=== PATIENT | male | born 1975 | race Caucasian/White ===

== ENCOUNTER 2023-06-12 14:05 | Outpatient (REF) | payer MEDICAID, OTHER, SELFPAY ==
[2023-06-12 16:33] LABS: MANUAL DIFF FLAG NO
[2023-06-12 16:38] LABS: Basophils Percent Auto 0.9 % (0-2); Eosinophils Absolute Auto 0.1 X10*3/uL (0.0-0.4); Eosinophils Percent Auto 1.3 % (0-4); Hematocrit 41.4 % (42.0-52.0); Hemoglobin 14.1 g/dl (14.0-18.0); Imm Gran Abs Auto 0.02 X10*3/uL (0.00-0.03); Imm Gran Pct Auto 0.4 % (0.0-0.4); Lymphocytes Absolute Auto 1.6 X10*3/uL (1.2-4.9); Lymphocytes Percent Auto 34.6 % (20-40); Mean Corpuscular HGB Conc 34.1 g/dl (31.0-36.0); Mean Corpuscular Hemoglobin 30.5 pg (27.0-33.0); Mean Corpuscular Volume 89.6 fL (80.0-98.0); Mean Platelet Volume 11.7 fL (9.4-12.4); Monocytes Absolute Auto 0.3 X10*3/uL (0.1-1.2); Monocytes Percent Auto 6.6 % (2-11); Neutrophils Absolute Auto 2.6 x10*3/uL (2.0-8.3); Neutrophils Percent Auto 56.2 % (45-73); Platelet Count 164 X10*3/uL (160-400); Red Blood Count 4.62 X10*6/uL (4.60-5.80); Red Cell Distribution Width 12.5 % (11.0-16.0); White Blood Count 4.7 X10*3/uL (4.8-10.8)
[2023-06-12 16:50] LABS: Estimated Average Glucose 103 mg/dL; Hemoglobin A1c % 5.2 %
[2023-06-12 16:54] LABS: Alanine Aminotransferase 29 U/L (0-40); Albumin Level 4.6 g/dL (3.5-5.0); Alkaline Phosphatase 69 U/L (39-117); Anion Gap 16 (12-20); Aspartate Amino Transferase 21 U/L (5-37); Bilirubin Total 0.3 mg/dL (0.0-1.0); Blood Urea Nitrogen 17 mg/dL (9-16); Calcium 9.8 mg/dL (8.4-10.2); Carbon Dioxide 24 mmol/L (22-29); Chloride 105 mmol/L (96-108); Cholesterol 208 mg/dL; Estimated Glomerular Filt Rate > 60; Glucose Random 93 mg/dL (60-115); HDL Cholesterol 44 mg/dL; LDL Cholesterol Calculated 115 mg/dl; Sodium 141 mmol/L (135-145); Total Protein 7.7 g/dL (6.5-8.0); Triglycerides 249 mg/dL
[2023-06-12 17:12] LABS: TSH reflex Free T4 2.28 uIU/mL (0.32-4.0); Vitamin D 25-OH Total 26.2 ng/mL (>30)
[2023-06-13 04:15] LABS: Syphilis Screen Nonreactive (Nonreactive)
[2023-06-13 04:35] LABS: ~HepC Num1 0.06 S/CO (0.00-0.79); ~Hepatitis C Antibody Nonreactive (Nonreactive)
[2023-06-13 04:37] LABS: HIV AB/AG Nonreactive (Nonreactive); HIV Num 1 0.05 S/CO (0.00-0.99)
== END 2023-06-12 14:06 | disposition home or self-care (01) ==
LOC: HO.HHCL 14:05
PROVIDERS: Visit Provider Emergency Medicine
DX: Z11.4 Encounter for screening for human immunodeficiency virus [HIV] (principal); F11.20 Opioid dependence, uncomplicated
CPT/HCPCS: 36415; 80053; 80061; 82306; 83036; 84443; 85025; 86780; 86803; 87389

== ENCOUNTER 2024-02-05 11:29 | Outpatient (REF) | payer MEDICAID, OTHER, SELFPAY ==
[2024-02-05 13:36] LABS: Hematocrit 44.8 % (42.0-52.0); Hemoglobin 15.5 g/dl (14.0-18.0); Mean Corpuscular HGB Conc 34.6 g/dl (31.0-36.0); Mean Corpuscular Hemoglobin 30.5 pg (27.0-33.0); Mean Corpuscular Volume 88.2 fL (80.0-98.0); Mean Platelet Volume 12.3 fL (9.4-12.4); Platelet Count 177 X10*3/uL (160-400); Red Blood Count 5.08 X10*6/uL (4.60-5.80); Red Cell Distribution Width 13.1 % (11.0-16.0); White Blood Count 5.1 X10*3/uL (4.8-10.8)
[2024-02-05 13:44] LABS: Estimated Average Glucose 111 mg/dL; Hemoglobin A1c % 5.5 % (<6.0)
[2024-02-05 14:10] LABS: Creatinine Urine 231.98 mg/dL; Microalbum/Creatinine Ratio Ur 7.7 ug/mg cr (<30)
[2024-02-05 15:11] LABS: CT PCR NOT DETECTED (Not Detect.); NG PCR NOT DETECTED (Not Detect.)
[2024-02-06 04:10] LABS: HBS Num1 78.04 mIU/mL (0-7.99); HBsAGNum1 0.44 S/CO (0.00-0.99); HIV AB/AG Nonreactive (Nonreactive); HIV Num 1 0.07 S/CO (0.00-0.99); Hepatitis B Surface Antigen Negative (Negative); ~HepC Num1 0.07 S/CO (0.00-0.79); ~Hepatitis B Surface Antibody REACTIVE (Nonreactive); ~Hepatitis C Antibody Nonreactive (Nonreactive)
[2024-02-07 09:44] LABS: RPR Rapid Plasma Reagin NON-REACTIVE (NON-REACTIVE)
== END 2024-02-05 11:30 | disposition home or self-care (01) ==
LOC: HO.HHCL 11:29
PROVIDERS: Visit Provider Family Medicine
DX: Z00.00 Encounter for general adult medical examination without abnormal findings (principal); Z11.4 Encounter for screening for human immunodeficiency virus [HIV]; Z20.2 Contact with and (suspected) exposure to infections with a predominantly sexual mode of transmission
CPT/HCPCS: 0353U; 36415; 82043; 82570; 83036; 85027; 86592; 86706; 86803; 87340; 87389

== ENCOUNTER 2024-09-04 12:25 | Outpatient (REF) | payer MEDICAID, OTHER, SELFPAY ==
[2024-09-04 14:10] LABS: Hematocrit 41.6 % (42.0-52.0); Hemoglobin 14.5 g/dl (14.0-18.0); Mean Corpuscular HGB Conc 34.9 g/dl (31.0-36.0); Mean Corpuscular Hemoglobin 31.3 pg (27.0-33.0); Mean Corpuscular Volume 89.7 fL (80.0-98.0); Mean Platelet Volume 11.1 fL (9.4-12.4); Platelet Count 166 X10*3/uL (160-400); Red Blood Count 4.64 X10*6/uL (4.60-5.80); Red Cell Distribution Width 12.7 % (11.0-16.0); White Blood Count 4.1 X10*3/uL (4.8-10.8)
[2024-09-04 14:20] LABS: Estimated Average Glucose 111 mg/dL; Hemoglobin A1C 125.8664 umol/L; Hemoglobin A1c % 5.5 % (<6.0); Total Hemoglobin (HGBA1C) 3441.4347 umol/L
[2024-09-04 14:25] LABS: Alanine Aminotransferase 35 U/L (0-40); Albumin Level 4.5 g/dL (3.5-5.0); Alkaline Phosphatase 68 U/L (39-117); Anion Gap 11 (12-20); Aspartate Amino Transferase 35 U/L (5-37); Bilirubin Direct 0.1 mg/dL (0.0-0.5); Bilirubin Total 0.5 mg/dL (0.0-1.0); Blood Urea Nitrogen 14 mg/dL (9-16); Calcium 9.7 mg/dL (8.4-10.2); Carbon Dioxide 29 mmol/L (22-29); Chloride 105 mmol/L (96-108); Cholesterol 190 mg/dL (<200); Estimated Glomerular Filt Rate > 60; Glucose Random 84 mg/dL (60-115); HDL Cholesterol 42 mg/dL (>40); LDL Cholesterol Calculated 130 mg/dL (<100); Potassium 4.7 mmol/L (3.3-5.1); Sodium 140 mmol/L (135-145); Total Protein 7.5 g/dL (6.5-8.0); Triglycerides 91 mg/dL (<150)
[2024-09-04 14:30] LABS: Thyroid Stimulating Hormone 1.81 uIU/mL (0.32-4.0); Vitamin D 25-OH Total 47.6 ng/mL (>30)
[2024-09-04 15:11] LABS: CT PCR NOT DETECTED (Not Detect.); NG PCR NOT DETECTED (Not Detect.)
[2024-09-05 08:49] LABS: HIV AB/AG Nonreactive (Nonreactive); HIV Num 1 0.05 S/CO (0.00-0.99); ~HepC Num1 0.06 S/CO (0.00-0.79); ~Hepatitis C Antibody Nonreactive (Nonreactive)
[2024-09-05 20:13] LABS: RPR Rapid Plasma Reagin NON-REACTIVE (NON-REACTIVE)
[2024-09-07 03:24] LABS: TS Negative Control Passed; TS Panel A 0; TS Panel B 1; TS Positive Control Passed; TSpotTB Negative (Negative)
== END 2024-09-04 12:26 | disposition home or self-care (01) ==
LOC: HO.HHCL 12:25
PROVIDERS: Visit Provider Family Medicine
DX: Z00.00 Encounter for general adult medical examination without abnormal findings (principal); F11.20 Opioid dependence, uncomplicated; E78.5 Hyperlipidemia, unspecified
CPT/HCPCS: 36415; 80048; 80061; 80076; 82306; 83036; 84439; 84443; 85027; 86481; 86592; 86803; 87389; 87491; 87591

== ENCOUNTER → 2024-12-24 15:53 | Outpatient (BNV) | payer SELFPAY | PROVIDERS: Emergency Provider Emergency Medicine; Visit Provider Internal Medicine Cardiovascular Disease | DX: R07.9 Chest pain, unspecified (principal) | CPT/HCPCS: 93010 ==

== ENCOUNTER → 2024-12-24 15:57 | Outpatient (BNV) | payer MEDICAID, SELFPAY | PROVIDERS: Emergency Provider Emergency Medicine; Visit Provider Radiology Diagnostic Radiology | DX: S19.9XXA Unspecified injury of neck, initial encounter (principal); S06.310A Contusion and laceration of right cerebrum without loss of consciousness, initial encounter; R07.9 Chest pain, unspecified | CPT/HCPCS: 71045; 72125 ==

== ENCOUNTER 2025-05-05 11:24 | Outpatient (REF) | payer MEDICAID, OTHER, SELFPAY ==
--- OUTSIDE RECORDS SUMMARY | 2025-05-05 10:00 | XMS_ITS | Encounter Summary ---
Author Organization [employer] Address [address] [place] [address] [address] [place] [address] Care Team Providers Care Linoleum Installer Name Role Phone Monica Galloway DO Primary Care Provider [phone] Reason for Visit * Reason Comments Follow-up Encounter Details Date Type Department Care Team (Latest Contact Info) Description 05/05/2025 10:00 AM EDT Office Visit [facility] MEDICINE [address], [place] [id number] Monica Galloway DO [address] [place], [place] [id number] Opioid dependence, uncomplicated (CMS/HCC) (Primary Dx); Dyslipidemia; Fatigue, unspecified type; Dizziness; Sleep-disordered breathing; Healthcare maintenance Social History Tobacco Use Types Packs/Day Years Used Date Smoking Tobacco: Never Smokeless Tobacco: Never Tobacco Cessation:Counseling Given: Not Answered Alcohol Use Standard Drinks/Week Comments Never 0 (1 standard drink = 0.6 oz pur e alcohol) Depression Answer Date Recorded Patient Health Questionnaire-9 Score 0 05/05/2025 Patient Health Questionnaire-9 Score 0 05/05/2025 Last PHQ-9: Questionnaire Data Not on file 0 05/05/2025 Housing Stability Answer Date Recorded What is your housing situation today? I have eb long 05/05/[address] you li ve. Do you have problems with any of the following? None of the above 05/05/2025 Food Insecurity Answer Date Recorded Within the past 12 months, y ou worried that your food would run out before you got money to buy more: Never True 05/05/2025 Within the past 12 months,th e food you bought just didn't last and you didn't have enough money to get more: Never True Transportation Answer Date Recorded In the past 12 months, has l ack of transportation kept you from medical appts, meetings, work or from getting things needed for daily living? No 05/05/2025 Utilities Answer Date Recorded In the past 12 months, has t he electric, gas, oil or water company threatened to shut off services in your home? No 05/05/2025 Depression Answer Date Recorded Patient Health Questionnaire-2 Score 0 05/05/2025 Internet Access Answer Date Recorded Internet Access Q1 Yes 05/05/2025 Internet Access Q2 Not on file 05/05/2025 Sex and Gender Information Value Date Recorded Sex Assigned at Male 09/11/2022 10:26 AM EDT Legal Sex Male 10:26 AM EDT Gender Identity Male 09/11/2022 10:26 AM EDT Sexual Orientation Straight 09/11/2022 10 :26 AM EDT documented as of this encounter Last Filed Vital Signs Vital Sign Reading Time Taken Comments Blood Pressure 138/90 05/05/2025 9:52 AM EDT Pulse 80 05/05/2025 9:52 AM EDT Temperature 36.7 C (98.1 F) 05/05/2025 9:52 AM EDT Respiratory Rate 20 05/05/2025 9:52 AM EDT Oxygen Saturation - - Inhaled Oxygen Concentration - - Weight 85.4 kg (188 lb 3.2 oz) 05/05/2025 9:52 A M EDT Height 175.3 cm (5' 9 ) 05/05/2025 9:52 AM EDT Body Mass Index 27.79 05/05/2025 9:52 AM EDT documented in this encounter Functional Status * Over the past 2 weeks, how often have you been bothered by any of the following problems? Question Answer Date of Assessment Author Patient Health Questionnaire-2 Score 0 05/05/2025 9:57 AM EDT Maggie Veras MA * Little interest or pleasure in doing things Answer Date of Assessment Author Not at all 05/05/2025 9:57 AM EDT Maggie Hardwick MA * Feeling down, depressed, or hopeless Answer Date of Assessment Author Not at all 05/05/2025 9:57 AM EDT Maggie Hardwick MA * Trouble falling or staying asleep, or sleeping too much Answer Date of Assessment Author Not at all 05/05/2025 9:57 AM Maggie Tello MA * Feeling tired or having little energy Answer Date of Assessment Author Not at all 05/05/2025 9:57 AM Maggie Tello MA * Poor appetite or overeating Answer Date of Assessment Author Not at all 05/05/2025 9:57 AM Maggie Tello MA * Feeling bad about yourself - or that you are a failure or have let yourself or your family down Answer Date of Assessment Author Not at all 05/05/2025 9:57 AM Maggie Tello MA * Trouble concentrating on things, such as reading the newspaper or watching television Answer Date of Assessment Author Not at all 05/05/2025 9:57 AM Maggie Tello MA * Moving or speaking so slowly that other people could have noticed? Or the opposite - being so fidgety or restless that you have been moving around a lot more than usual. Answer Date of Assessment Author Not at all 05/05/2025 9:57 AM Maggie Telol MA * Thoughts that you would be better off or hurting yourself in some way Answer Date of Assessment Author Not at all 05/05/2025 9:57 AM Maggie Tello MA * Patient Health Questionnaire-9 Score Answer Date of Assessment Author 0 05/05/2025 9:57 AM Maggie Tello MA * Over the last 2 weeks, how often have you been bothered by any of the following problems? Question Answer Date of Assessment Author Feeling nervous, anxious, or on edge 0 05/05/2025 9:57 AM Maggie Shaikh MA Not being able to stop or control worrying 0 05/05/2025 9:57 AM Maggie Shaikh MA Worrying too much about different things 0 05/05/2025 9:57 AM Maggie Shaikh MA Trouble relaxing 0 05/05/2025 9:57 AM EDT R Maggie Lira MA Being so restless that it is hard to sit still 0 05/05/2025 9:57 AM EDT Maggie Veras MA Becoming easily annoyed or irritable 0 05/05/2025 9:57 AM EDT Maggie Veras MA Feeling afraid as if something awful might happen 0 05/05/2025 9:57 AM EDT Maggie Birmingham MA JOY-7 Total Score 0 05/05/2025 9:57 AM EDT Maggie Veras MA documented as of this encounter Plan of Treatment Upcoming Encounters Date Type Department Care Team (Late st Contact Info) Description 05/19/2025 1:15 PM EDT Clinical Support [facility] MEDICINE [address] [place] [address] Radha Ricketts RN 08/31/2025 3:00 PM EDT Office Visit [facility] ADULT DENTAL [address] [place] [address] Coleen Abigail [address] [place] [address] Scheduled Orders Name Type Priority Associated Diagnoses Orde r Schedule T4, Free Lab Routine Opioid dependence, uncomplicated (CMS/HCC) Dyslipidemia Fatigue, unspecified type Dizziness Sleep-disordered breathing Healthcare maintenance Expected: 05/05/2025 (Approximate), Expires: 05/05/2026 Lipid Panel, Standard Lab Routine Opioid dependence, uncomplicated (CMS/HCC) Dyslipidemia Fatigue, unspecified type Dizziness Sleep-disordered breathing Healthcare maintenance Expected: 05/05/2025 (Approximate), Expires: 05/05/2026 TSH Lab Routine Opioid dependence, uncomplicated (CMS/HCC) Dyslipidemia Fatigue, unspecified type Dizziness Sleep-disordered breathing Healthcare maintenance Expected: 05/05/2025 (Approximate), Expires: 05/05/2026 Vitamin D, 25-Hydroxy, Total, Immunoassay Lab Routine Opioid dependence, uncomplicated (CMS/HCC) Dyslipidemia Fatigue, unspecified type Dizziness Sleep-disordered breathing Healthcare maintenance Expected: 05/05/2025 (Approximate), Expires: 05/05/2026 Hepatic Function Panel Lab Routine Opioid dependence, uncomplicated (CMS/HCC) Dyslipidemia Fatigue, unspecified type Dizziness Sleep-disordered breathing Healthcare maintenance Expected: 05/05/2025 (Approximate), Expires: 05/05/2026 Hemoglobin A1c Lab Routine Opioid dependence, uncomplicated (CMS/HCC) Dyslipidemia Fatigue, unspecified type Dizziness Sleep-disordered breathing Healthcare maintenance Expected: 05/05/2025 (Approximate), Expires: 05/05/2026 CBC Lab Routine Opioid dependence, uncomplicated (CMS/HCC) Dyslipidemia Fatigue, unspecified type Dizziness Sleep-disordered breathing Healthcare maintenance Expected: 05/05/2025, Expires: 05/05/2026 Basic Metabolic Panel Lab Routine Opioid dependence, uncomplicated (CMS/HCC) Dyslipidemia Fatigue, unspecified type Dizziness Sleep-disordered breathing Healthcare maintenance Expected: 05/05/2025 (Approximate), Expires: 05/05/2026 documented as of this encounter Visit Diagnoses Diagnosis Opioid dependence, uncomplicated (CMS/HCC)- Primary Dyslipidemia Other and unspecified hyperlipidemia Fatigue, unspecified type Dizziness Dizziness and giddiness Sleep-disordered breathing Other sleep disturbances Healthcare maintenance documented in this encounter Additional Health Concerns Assessment Noted Time PHQ-9 Depression Total Score: 0 05/05/20 25 9:57 AM EDT documented as of this encounter Care Teams Linoleum Installer Relationship Specialty Start Date End Date Monica Galloway DO [address] [place] [id number] PCP - General Family Medicine 05/19/14 documented as of this encounter
[2025-05-05 13:11] LABS: Hematocrit 44.3 % (42.0-52.0); Hemoglobin 15.4 g/dl (14.0-18.0); Mean Corpuscular HGB Conc 34.8 g/dl (31.0-36.0); Mean Corpuscular Volume 89.1 fL (80.0-98.0); Mean Platelet Volume 11.7 fL (9.4-12.4); Platelet Count 166 X10*3/uL (160-400); Red Blood Count 4.97 X10*6/uL (4.60-5.80); Red Cell Distribution Width 12.7 % (11.0-16.0); White Blood Count 5.4 X10*3/uL (4.8-10.8)
[2025-05-05 13:16] LABS: Estimated Average Glucose 114 mg/dL; Hemoglobin A1c % 5.6 % (<6.0)
[2025-05-05 13:39] LABS: Alanine Aminotransferase 33 U/L (0-40); Albumin Level 4.9 g/dL (3.5-5.0); Alkaline Phosphatase 69 U/L (39-117); Anion Gap 13 (12-20); Aspartate Amino Transferase 32 U/L (5-37); Bilirubin Direct 0.2 mg/dL (0.0-0.5); Bilirubin Total 0.5 mg/dL (0.0-1.0); Blood Urea Nitrogen 17 mg/dL (9-16); Calcium 10.1 mg/dL (8.4-10.2); Carbon Dioxide 29 mmol/L (22-29); Chloride 106 mmol/L (96-108); Cholesterol 218 mg/dL (<200); Estimated Glomerular Filt Rate > 60; Glucose Random 99 mg/dL (60-115); HDL Cholesterol 41 mg/dL (>40); LDL Cholesterol Calculated 138 mg/dL (<100); Sodium 144 mmol/L (135-145); Total Protein 7.8 g/dL (6.5-8.0); Triglycerides 199 mg/dL (<150)
[2025-05-05 13:43] LABS: Free T4 (Free Thyroxine) 1.04 ng/dL (0.71-1.85); Thyroid Stimulating Hormone 1.48 uIU/mL (0.32-4.0); Vitamin D 25-OH Total 50.9 ng/mL (>30)
== END 2025-05-05 11:25 | disposition home or self-care (01) ==
LOC: HO.HHCL 11:24
PROVIDERS: PCP Family Medicine; Visit Provider Family Medicine
DX: F11.20 Opioid dependence, uncomplicated (principal); E78.5 Hyperlipidemia, unspecified; R53.83 Other fatigue; R42 Dizziness and giddiness; G47.30 Sleep apnea, unspecified; Z00.00 Encounter for general adult medical examination without abnormal findings
CPT/HCPCS: 36415; 80048; 80061; 80076; 82306; 83036; 84439; 84443; 85027